=== PATIENT | female | born 1970 | race Caucasian/White ===

== ENCOUNTER 2018-06-02 09:22 | Day surgery (SDC) | payer OTHER ==
[~2018-06-02] VITALS: Ht 165.1 cm; Wt 88.5 kg
[~2018-06-02 09:22] MED LIST: ACEBUTCAFT PO; ALBU90OI INH; AMIT10 PO; AMIT75; AMOCLA875 PO; AMOX1XR PO; Bactrim Ds Tab1 EACH PO; CEPH500 PO; CLON1; CLON1 PO; CODACE30 PO; CYCL10 PO; DILT180 PO; ESCI10; ESTNORT; Esgic Tablet1 EACH PO; FLUO20 PO; GABA300 PO; HYDACE5 PO; HYDACE5325 PO; HYDGUAL120 PO; IBUP400 PO; IBUP600 PO; IBUP800 PO; LISI5 PO; LOSA25 PO; Lipitor20 MG PO; MEDR10 PO; METDOP250; METDOP250 PO; METO25ER PO; MIRT30; MULVITMINF; Monodox100 MG PO; Norco 5-325 Ta1 EACH PO; OMEP20ER PO; ONDA8ODT MM; OXYACE5T PO; OXYC5 PO; PARO20 PO; PROM25 PO; Prednisone20 MG PO; QUET200; QUET25 PO; RANI150; RANI150 PO; REMERON; SERT100; SERT100 PO; SPACE CHAMBER1 EACH INH; TRAM50 PO; TRAZ100; TRAZ100 PO; TRAZ50; TRIHYD253A; Ultram50 MG PO; VENL150ER PO; Zoloft100 MG PO
[2018-06-03 04:29] LABS: BASOPHILS ABSOLUTE AUTO 0.01 K/mm3 (0.00-0.23); BASOPHILS PERCENT AUTO 0 % (0-2); EOSINOPHILS ABSOLUTE AUTO 0.01 K/mm3 (0.00-0.68); EOSINOPHILS PERCENT AUTO 0 % (0-6); Hemoglobin 13.3 g/dL (11.5-16.0); IMMATURE GRAN ABSOLUTE AUTO 0.03 K/mm3 (0.00-0.10); IMMATURE GRAN PERCENT AUTO 0 % (0-1); LYMPHOCYTES ABSOLUTE AUTO 0.84 K/mm3 (0.84-5.20); LYMPHOCYTES PERCENT AUTO 9 % (21-46); MONOCYTES ABSOLUTE AUTO 0.38 K/mm3 (0.16-1.47); MONOCYTES PERCENT AUTO 4 % (4-13); Mean Corpuscular HGB 31.8 pg (26.0-34.0); Mean Corpuscular HGB Conc 34.1 g/dL (31.5-36.5); Mean Corpuscular Volume 93 fL (80-100); Mean Platelet Volume 9.6 fL (9.1-12.4); NEUTROPHILS ABSOLUTE AUTO 8.43 K/mm3 (1.96-9.15); NEUTROPHILS PERCENT AUTO 87 % (41-73); Platelet Count 190 K/mm3 (150-400); RDW Coefficient Variation 12.9 % (11.7-14.2); Red Blood Cell Count 4.18 M/mm3 (3.80-5.20)
[2018-06-03] MEDS ORDERED: DOCU100 PO (15:38)
[2018-06-03] MEDS ORDERED: ESTR2 PO (15:38)
[2018-06-03] MEDS ORDERED: ROXICODONE5 MG PO (15:39)
[2018-06-03] MEDS ORDERED: Milk Of Ma400 MG/5 M PO (15:39)
[2018-06-03] MEDS ORDERED: SIME80CH PO (15:41)
== END 2018-06-03 16:04 | disposition home or self-care (01) ==
LOC: ORSCMMR 09:22 → ORD 11:00 → ORSCMMR 11:00 → SURS 15:50 → ORSCMMR 06-03 16:04
PROVIDERS: Obstetrics & Gynecology
PROC: 0UT2FZZ Resection of Bilateral Ovaries, Via Natural or Artificial Opening With Percutaneous Endoscopic Assistance (ICD-10-PCS; principal; 2018-06-02 15:00)
PROC: 0UT9FZZ Resection of Uterus, Via Natural or Artificial Opening With Percutaneous Endoscopic Assistance (ICD-10-PCS; principal; 2018-06-02 15:00)
PROC: 0UT7FZZ Resection of Bilateral Fallopian Tubes, Via Natural or Artificial Opening With Percutaneous Endoscopic Assistance (ICD-10-PCS; principal; 2018-06-02 15:00)
DX: N92.1 Excessive and frequent menstruation with irregular cycle (principal); N94.10 Unspecified dyspareunia; N80.3 Endometriosis of pelvic peritoneum; I10 Essential (primary) hypertension; J44.9 Chronic obstructive pulmonary disease, unspecified; J45.909 Unspecified asthma, uncomplicated; Z79.899 Other long term (current) drug therapy; B19.20 Unspecified viral hepatitis C without hepatic coma
CPT/HCPCS: 36415; 85025; 86850; 86900; 86901; J0690; J1100; J1170; J1885; J2250; J2405; J2710; J3010; J7030; J7120

== ENCOUNTER 2019-07-16 08:17 | Emergency (ER) | payer OTHER ==
[~2019-07-16] VITALS: Ht 165.1 cm; Wt 90.7 kg
[~2019-07-16 08:17] MED LIST changes: +DOCU100 PO; +ESTR2 PO; +Milk Of Ma400 MG/5 M PO; +ROXICODONE5 MG PO; +SIME80CH PO
== END 2019-07-16 10:12 | disposition home or self-care (01) ==
LOC: ER 08:17
DX: M79.661 Pain in right lower leg (principal); M79.662 Pain in left lower leg; W01.198A Fall on same level from slipping, tripping and stumbling with subsequent striking against other object, initial encounter; Z88.8 Allergy status to other drugs, medicaments and biological substances; Z91.018 Allergy to other foods; Z79.899 Other long term (current) drug therapy; Z87.891 Personal history of nicotine dependence
CPT/HCPCS: 73562-RT; 73590; 99283-25; A9270-GY

== ENCOUNTER 2021-06-05 07:22 | Emergency (ER) | payer OTHER ==
[~2021-06-05] VITALS: Ht 165.1 cm; Wt 90.7 kg
[2021-06-05] MEDS ORDERED: LAMO100 PO (07:48)
[2021-06-05] MEDS ORDERED: CLON1 PO (07:48)
[2021-06-05] MEDS ORDERED: GABA300 PO (08:51)
== END 2021-06-05 09:05 | disposition home or self-care (01) ==
LOC: ER 07:22
DX: M54.50 Low back pain, unspecified (principal); I10 Essential (primary) hypertension; Z87.891 Personal history of nicotine dependence
CPT/HCPCS: 99283; A9270

== ENCOUNTER → 2021-09-02 | Emergency (ER) | payer OTHER ==
[~2021-09-02] MED LIST changes: +CATAPRES0.1 MG PO; +LAMO100 PO; +LAMOTRIGINE100 M1 PO; +NEURONTIN300 MG PO; +ZOLOFT100 M9 PO
== END ==
LOC: ER 11:23
DX: Z53.21 Procedure and treatment not carried out due to patient leaving prior to being seen by health care provider (principal)

== ENCOUNTER → 2021-09-03 | Outpatient (CLI) | payer OTHER ==
[2021-09-03 18:18] LABS: BASOPHILS ABSOLUTE AUTO 0.02 K/mm3 (0.00-0.23); BASOPHILS PERCENT AUTO 0 % (0-2); EOSINOPHILS PERCENT AUTO 0 % (0-6); Hematocrit 40.9 % (33.0-51.0); Hemoglobin 14.2 g/dL (11.5-16.0); IMMATURE GRAN ABSOLUTE AUTO 0.03 K/mm3 (0.00-0.10); IMMATURE GRAN PERCENT AUTO 0 % (0-1); LYMPHOCYTES ABSOLUTE AUTO 1.53 K/mm3 (0.84-5.20); LYMPHOCYTES PERCENT AUTO 17 % (21-46); MONOCYTES ABSOLUTE AUTO 0.81 K/mm3 (0.16-1.47); MONOCYTES PERCENT AUTO 9 % (4-13); Mean Corpuscular HGB 30.8 pg (26.0-34.0); Mean Corpuscular HGB Conc 34.7 g/dL (31.5-36.5); Mean Corpuscular Volume 89 fL (80-100); Mean Platelet Volume 9.6 fL (9.1-12.4); NEUTROPHILS ABSOLUTE AUTO 6.44 K/mm3 (1.96-9.15); NEUTROPHILS PERCENT AUTO 73 % (41-73); Platelet Count 263 K/mm3 (150-400); RDW Coefficient Variation 12.9 % (11.7-14.2); RDW Standard Deviation 41.7 fL (35.1-46.3); Red Blood Cell Count 4.61 M/mm3 (3.80-5.20); White Blood Cell Count 8.83 K/mm3 (4.00-11.30)
[2021-09-03 18:25] LABS: Alanine Aminotransfer (ALT/SGP 22 U/L (12-78); Albumin, Blood 3.3 g/dL (3.4-5.0); Albumin/Globulin Ratio 0.6 (0.8-1.8); Alk Phos 115 U/L (40-126); Anion Gap 8 mmol/L (6-16); Aspartate Aminotrans (AST/SGOT 18 U/L (12-37); Bilirubin, Total 0.9 mg/dL (0.1-1.0); Blood Urea Nitrogen 7 mg/dL (8-24); Bun/Creatinine Ratio 10.8 (12.0-20.0); CO2, Blood 29 mmol/L (21-32); Chloride, Blood 98 mmol/L (98-108); Creatinine, Blood 0.65 mg/dL (0.40-1.00); Globulin, Blood 5.5 g/dL (2.2-4.0); Glomerular Filtration Rate >60 (60-); Glucose, Blood 110 mg/dL (70-99); Potassium, Blood 3.4 mmol/L (3.5-5.5); Sodium, Blood 135 mmol/L (136-145); Total Protein, Blood 8.8 g/dL (6.4-8.2)
== END | disposition home or self-care (01) ==
LOC: LAB SHORT 18:10
PROVIDERS: Physician Assistant
DX: M54.50 Low back pain, unspecified (principal)
CPT/HCPCS: 80053; 85025; 85651; 86140

== ENCOUNTER → 2024-06-26 | Outpatient (CLI) | payer MEDICARE, OTHER ==
[~2024-06-26] MED LIST changes: +ATOR20 PO; +Calcium Carbon500 MG PO; +FLONASE ALLERG9.9 M2 INH; +LOSA50 PO; +METPRE4; +PEPCID20 MG PO; +QUETIAPINE FUMA PO; +SEROQUEL25 MG PO; +TRAZ150T57 PO
[2024-06-26 14:52] LABS: U Amphetamine Screen Not Detected
[2024-06-26 14:53] LABS: U Barbituate Screen Not Detected; U Benzodiazapine Screen Not Detected; U Buprenorphine Screen Not Detected; U Cannabinoids Screen Not Detected; U Cocaine Screen Not Detected; U Methadone Screen Not Detected; U Methamphetamine Screen Not Detected; U Opiates Screen Not Detected; U Oxycodone Screen Not Detected; U Phencyclidine Screen Not Detected
== END | disposition home or self-care (01) ==
LOC: LAB 10:57 → LAB SHORT 10:57
PROVIDERS: Nurse Practitioner Psychiatric/Mental Health
DX: F41.1 Generalized anxiety disorder (principal)

== ENCOUNTER → 2024-09-07 | Outpatient (CLI) | payer MEDICARE, OTHER ==
[2024-09-07 12:38] LABS: BASOPHILS ABSOLUTE AUTO 0.01 K/mm3 (0.00-0.23); BASOPHILS PERCENT AUTO 0 % (0-2); EOSINOPHILS ABSOLUTE AUTO 0.02 K/mm3 (0.00-0.68); EOSINOPHILS PERCENT AUTO 0 % (0-6); Hematocrit 38.8 % (33.0-51.0); Hemoglobin 12.9 g/dL (11.5-16.0); IMMATURE GRAN ABSOLUTE AUTO 0.02 K/mm3 (0.00-0.10); IMMATURE GRAN PERCENT AUTO 0 % (0-1); LYMPHOCYTES ABSOLUTE AUTO 0.73 K/mm3 (0.84-5.20); LYMPHOCYTES PERCENT AUTO 11 % (21-46); MONOCYTES ABSOLUTE AUTO 0.55 K/mm3 (0.16-1.47); MONOCYTES PERCENT AUTO 8 % (4-13); Mean Corpuscular HGB 29.6 pg (26.0-34.0); Mean Corpuscular HGB Conc 33.2 g/dL (31.5-36.5); Mean Corpuscular Volume 89 fL (80-100); Mean Platelet Volume 9.4 fL (9.1-12.4); NEUTROPHILS ABSOLUTE AUTO 5.37 K/mm3 (1.96-9.15); NEUTROPHILS PERCENT AUTO 80 % (41-73); Platelet Count 163 K/mm3 (150-400); Red Blood Cell Count 4.36 M/mm3 (3.80-5.20)
[2024-09-07 12:52] LABS: Albumin, Blood 3.5 g/dL (3.4-5.0); Albumin/Globulin Ratio 0.8 (0.8-1.8); Bilirubin, Total 0.9 mg/dL (0.1-1.0); Bun/Creatinine Ratio 11.3 (12.0-20.0); Calcium, Blood 9.5 mg/dL (8.5-10.1); Creatinine, Blood 0.71 mg/dL (0.40-1.00); Globulin, Blood 4.5 g/dL (2.2-4.0); Uric Acid, Blood 3.2 mg/dL (2.6-6.0)
== END | disposition home or self-care (01) ==
LOC: LAB SHORT 12:34 → LAB 12:34
PROVIDERS: Physician Assistant
DX: L03.115 Cellulitis of right lower limb (principal)
CPT/HCPCS: 80053; 83605; 84550; 85025